=== PATIENT | female | born 1960 | race Caucasian/White ===

== ENCOUNTER → 2017-09-16 | Outpatient (CLI) | payer OTHER ==
[~2017-09-16] VITALS: Ht 160 cm; Wt 74.8 kg
[~2017-09-16] MED LIST: ATIVAN1 MG PO; BELSOMRA5 MG PO; DURAGESIC1 EACH TRANSDERM; METHOCARBAMOL500 M1 PO; PERCOCET 10-321 EACH PO; PREDNISONE 10 M10 MG PO; PROTONIX40 M1 PO; PROZAC20 MG PO; REMERON15 M2 PO; ROBAXIN 750 MG750 M1 PO; XANAX 0.5 MG0.5 MG PO
[2017-09-16 14:10] VITALS: BP 101/73
== END ==
LOC: PAIN 06:41
DX: Z09 Encounter for follow-up examination after completed treatment for conditions other than malignant neoplasm (principal); M06.9 Rheumatoid arthritis, unspecified; R42 Dizziness and giddiness; F17.200 Nicotine dependence, unspecified, uncomplicated; Z79.891 Long term (current) use of opiate analgesic